=== PATIENT | female | born 1990 | race Caucasian/White ===

== ENCOUNTER → 2017-09-05 | Outpatient (CLI) | payer SELFPAY | LOC: COL.RAD 15:49 | DX: Z30.432 Encounter for removal of intrauterine contraceptive device (principal); T83.89XA Other specified complication of genitourinary prosthetic devices, implants and grafts, initial encounter ==

== ENCOUNTER 2018-07-11 07:07 | Inpatient (IN) | payer OTHER ==
[~2018-07-11] VITALS: Ht 160 cm; Wt 68.2 kg
[2018-07-11] VITALS (29 sets, daily range): BP systolic 94–118; BP diastolic 51–68; PULSE 63–89; TEMP 97.4–98.4
--- NOTE | 2018-07-11 07:10 | NUR ---
Patient arrives ambulatory with spouse for scheduled induction of labor. Patient reports occasional contractions over the past day, denies ROM or vaginal bleeding, and reports normal movement. Patient changes into gown, EFM explained and placed. VSS. Plan of care for induction reviewed, patient denies questions or concerns. 0720- IV started in LFA, labs obtained and LR infusing per protocol. Consents explained and signed. Assessment completed. Patient denies questions. 0745- Reactive FHR strip obtained. SVE unchanged from office, . Pitocin administration reviewed with patient, denies questions. Pitocin started at 2 mU per protocol and order. Patient denies need at this time. Call light in reach, at bedside.
[2018-07-11] MEDS ORDERED: PROFE180 MG PO (07:34)
[2018-07-11 08:06] LABS: BASO % 0.3 % (0.0-2.0); EOS # 0.1 (0.0-0.7); EOS % 1.4 % (0-4.0); GRAN # 7.1 (1.4-6.5); GRAN % 73.9 % (42.2-75.2); HEMOGLOBIN 11.6 g/dl (12.5-16.0); LYMPH # 1.6 (1.2-3.4); LYMPH % 16.9 % (20.0-51.0); MEAN CELL VOLUME 91 fl (80.0-100.0); MEAN CORPUSCULAR HEMOGLOBIN 30 pg (27.0-31.0); MEAN CORPUSCULAR HGB CONC 33 g/dl (33.0-37.0); MEAN PLATELET VOLUME 9.8 fl (7.4-10.4); MONO # 0.7 (0.1-0.6); MONO % 6.8 % (1.7-9.3); PLATELET COUNT 281 K/mm3 (130-400); RED BLOOD COUNT 3.82 M/mm3 (4.10-5.30); REDCELL DISTRIBUTION WIDTH-CV 16.3 % (11.5-14.5)
[2018-07-11 08:11] LABS: HEMATOCRIT 34.9 % (37.0-47.0)
--- NOTE | 2018-07-11 09:50 | NUR ---
0950-Dr. Garcia at bedside. Reviews FHR strip and contraction pattern. Discussing AROM with patient, patient agrees to plan of care. 0953- SVE per provider . AROM by Dr. Garcia for moderate amount of clear fluid. Pericare given, patient repositioned WR and updated on plan of care. Denies need.
--- NOTE | 2018-07-11 10:40 | NUR ---
Patient requesting epidural. Dr. Garcia on unit and notified. Ivan Mehta HAND REAMER notified. LR bolus infusing.
--- NOTE | 2018-07-11 10:42 | NUR ---
Patient assisted to sit on edge of bed. Ivan Mehta CRNA at bedside for epidural placement. Monitors adjusted, FHR tracing intermittently as patient moves with contraction pain. RN adjusting EFM. 1051- Single shot via epidural by Ivan Mehta CRNA. Patient tolerates well, no adverse reactions noted. See anesthesia record. 1055- Patient repositioned WL following epidural placement. Updated on plan of care. Dr. Garcia on unit, updated on patient.
--- NOTE | 2018-07-11 11:40 | NUR ---
1140-Patient requests SVE. 8/100/0. Pericare given. Dr. Garcia updated on patient assessment. 1145- Patient reports increased pressure and requests SVE. SVE 9/100/+1. Pericare given. Patient encouraged to notify RN with increased pressure.
--- NOTE | 2018-07-11 11:55 | NUR ---
1155- Patient reports urge to push. SVE . Dr. Garcia notified. In transit to hospital. Bosch catheter removed prior to pushing. Pericare given. RN remains at bedside. 1210- Dr. Garcia at bedside. SVE per provider . Pericare given and patient assisted to footplates. 1211- Patient begins pushing with contractions with physician at bedside.
--- NOTE | 2018-07-11 12:30 | NUR ---
1230- Mirror used to aid pushing efforts. Physician remains at bedside. 1238- of viable female infant attended by Dr. Garcia. to mother's abdomen, care of infant to Lei Garcia RN. Apgars 8//9. 1242- Spont. delivery of placenta. Pitocin bolus started at 333 ml/hr/protocol. Fundal massage. Increased free flow and several small clots expressed, orders for IM Methergine received. See EMAR. Vaginal bleeding improves following medication and continue massage. Pericare given, perineum intact. Ice pack applied and patient updated on plan of care and safety. 1310- Moderate amount of free flow noted with exam. Dr. Garcia updated, no new orders at this time.
[2018-07-12 01:00] VITALS: BP 90/45; PULSE 72; TEMP 97.9
[2018-07-12 08:15] VITALS: BP 100/58; PULSE 78; TEMP 98.7
[2018-07-12] MEDS ORDERED: IBU800 M1 PO (09:17)
== END 2018-07-12 15:05 | disposition home or self-care (01) | DRG 807 ==
LOC: LDR 07:07 → OB 15:30 → LDR 16:06 → OB 07-12 15:05
PROVIDERS: ADMIT Student in an Organized Health Care Education/Training Program
PROC: 3E033VJ Introduction of Other Hormone into Peripheral Vein, Percutaneous Approach (ICD-10-PCS; principal; 2018-07-11)
PROC: 10907ZC Drainage of Amniotic Fluid, Therapeutic from Products of Conception, Via Natural or Artificial Opening (ICD-10-PCS; principal; 2018-07-11)
PROC: 10E0XZZ Delivery of Products of Conception, External Approach (ICD-10-PCS; principal; 2018-07-11)
DX: O76 Abnormality in fetal heart rate and rhythm complicating labor and delivery (principal); Z37.0 Single live birth; Z3A.39 39 weeks gestation of pregnancy; O62.2 Other uterine inertia
CPT/HCPCS: J2210; J2590; J2795; J7120

== ENCOUNTER → 2021-07-09 | Outpatient (CLI) | payer OTHER ==
[~2021-07-09] MED LIST: IBU800 M1 PO; PROFE180 MG PO
== END ==
LOC: COL.RAD 09:33
DX: K82.4 Cholesterolosis of gallbladder (principal)
CPT/HCPCS: A9537

== ENCOUNTER 2023-10-16 14:14 | Emergency (ER) | payer BC ==
[~2023-10-16] VITALS: Ht 162.6 cm; Wt 56.4 kg
[2023-10-16 14:18] VITALS: TEMP 98.3
[2023-10-16] MEDS ORDERED: LR 1,000 ML IV ONE (14:30)
[2023-10-16] MEDS ORDERED: Ondansetron 4 MG/2 ML VIAL IV ONE (14:30)
[2023-10-16 14:45] LABS: BASO % 0.4 % (0.0-2.0); EOS # 0.2 K/mm3 (0.0-0.7); EOS % 2.3 % (0.0-4.0); GRAN # 4.3 K/mm3 (1.4-6.5); GRAN % 58.2 % (42.2-75.2); HEMATOCRIT 36.5 % (37.0-47.0); HEMOGLOBIN 12.2 g/dl (12.5-16.0); LYMPH # 2.4 K/mm3 (1.2-3.4); LYMPH % 32.6 % (20.0-51.0); MEAN CELL VOLUME 90 fl (80.0-100.0); MEAN CORPUSCULAR HEMOGLOBIN 30 pg (27-31); MEAN CORPUSCULAR HGB CONC 33 g/dl (33.0-37.0); MEAN PLATELET VOLUME 9.8 fl (7.4-10.4); MONO # 0.5 K/mm3 (0.1-0.6); MONO % 6.4 % (1.7-9.3); PLATELET COUNT 258 K/mm3 (130-400); RED BLOOD COUNT 4.05 M/mm3 (4.10-5.30); REDCELL DISTRIBUTION WIDTH-CV 13.2 % (11.5-14.5)
[2023-10-16] MEDS ORDERED: fentaNYL 50 MCG/ML 2 ML VIAL IV PRN (14:45)
[2023-10-16 14:47] LABS: PH 5.5 (5.0-8.5); URINE APPEARANCE CLEAR (CLEAR/HAZY); URINE BLOOD NEGATIVE (NEGATIVE); URINE COLOR YELLOW (YELLOW); URINE GLUCOSE NEGATIVE (NEGATIVE); URINE KETONE NEGATIVE (NEGATIVE); URINE NITRATE NEGATIVE (NEGATIVE); URINE PROTEIN(semi-quant) NEGATIVE (NEGATIVE); URINE UROBILINOGEN 0.2 E.U/dL (0.2-1.0)
[2023-10-16 14:56] LABS: COLLECTION METHOD CLEAN CATCH
[2023-10-16] MEDS ORDERED: Iohexol 300 - 100 ML VIAL IV ONE (15:04)
[2023-10-16] MEDS ORDERED: NS 100 ML IV SCH (15:04)
[2023-10-16 15:11] LABS: ALBUMIN 4.2 g/dL (3.5-5.0); BILIRUBIN,TOTAL 0.2 mg/dL (0.2-1.2); C-REACTIVE PROTEIN 0.05 mg/dL (0.00-0.50); CREATININE, serum 0.72 mg/dL (0.57-1.11); POTASSIUM 3.4 mEq/L (3.5-4.5); TOTAL PROTEIN 7.7 g/dl (6.2-8.1)
[2023-10-16 16:16] VITALS: BP 112/69; PULSE 88
== END 2023-10-16 16:20 | disposition home or self-care (01) ==
LOC: COL.ER 14:14
PROVIDERS: Family Medicine
DX: R10.9 Unspecified abdominal pain (principal)
CPT/HCPCS: J7120; Q9967